=== PATIENT | female | born 1965 | race African-American/Black ===

== ENCOUNTER 2017-03-26 09:44 | Emergency (ER) | payer MEDICAID ==
[~2017-03-26] VITALS: Ht 162.6 cm; Wt 54.0 kg
[2017-03-26 09:45] VITALS: BP 139/99
--- NOTE | 2017-03-26 10:15 | NUR ---
PT PRESENTS WITH C/O BILATERAL RASH TO EYES. THE PT STATES THAT SHE STARTED A NEW MOISTURIZER X 2 WEEKS AGO. THE PT STATES THAT THE RASH FIRST APPEARED X 1 WEEK AGO. PT DENIES PAIN. THE PT REPORTS BURNING OF THE EYES AND ITCHING. THE PT STATES THAT SHE LAST TOOK BENADRYL PO X 3 DAYS AGO. NO OBVIOUS RASH NOTICED. PT DENIES ANY OTHER SYMPTOMS.
--- NOTE | 2017-03-26 11:09 | NUR ---
PT LEFT WITHOUT AFTER CARE INSTRUCTIONS, MADE AWARE
== END 2017-03-26 11:10 | disposition home or self-care (01) ==
LOC: ER 09:47
DX: H01.003 Unspecified blepharitis right eye, unspecified eyelid (principal); H01.006 Unspecified blepharitis left eye, unspecified eyelid
CPT/HCPCS: 99282; A4606; Z7610

== ENCOUNTER 2018-02-15 15:28 | Emergency (ER) | payer MEDICAID ==
[~2018-02-15] VITALS: Ht 152.4 cm; Wt 51.7 kg
[2018-02-15] MEDS ORDERED: IBUPROFEN 600 MG TABLET PO ONE (16:30)
[2018-02-15 18:20] VITALS: BP 157/90
--- NOTE | 2018-02-15 18:20 | NUR ---
Patient discharged to home in stable condition. Written and verbal after care instructions given. Patient verbalizes understanding of instruction.
== END 2018-02-15 18:22 | disposition home or self-care (01) ==
LOC: ER 15:30
DX: J20.9 Acute bronchitis, unspecified (principal)
CPT/HCPCS: 71045; 99283; A4606; Z7610